=== PATIENT | male | born 1945 ===

== ENCOUNTER 2017-05-03 07:10 | Day surgery (SDC) | payer MEDICARE, OTHER, MEDICAID ==
[2017-05-03] MEDS ORDERED: Midazolam 2 MG/2 ML VIAL ONE (07:35)
[2017-05-03] MEDS ORDERED: Propofol 10 mg/ml Inj (20 ML) ONE (07:36)
[2017-05-03] MEDS ORDERED: Lactated Ringer's 500 ML IV ONE (07:44)
[2017-05-03 09:31] VITALS: BP 96/66; PULSE 73; RESP 22; TEMP 96.9; O2SAT 96
== END 2017-05-03 09:48 | disposition home or self-care (01) ==
LOC: H.ENDO 07:10
PROVIDERS: ATTEND Internal Medicine Gastroenterology
DX: K57.30 Diverticulosis of large intestine without perforation or abscess without bleeding (principal); K64.8 Other hemorrhoids; Z12.11 Encounter for screening for malignant neoplasm of colon
CPT/HCPCS: 45378; J2001; J2250; J2704; J7120